=== PATIENT | female | born 1950 | race Caucasian/White ===

== ENCOUNTER 2017-03-29 22:09 | Inpatient (IN) | payer MEDICARE, MEDICAID ==
[~2017-03-29] VITALS: Ht 167.6 cm; Wt 89.8 kg
[2017-03-29] MEDS ORDERED: PRAV40TA3 PO (22:47)
[2017-03-29] MEDS ORDERED: OMEP40CA37 PO (22:47)
[2017-03-29] MEDS ORDERED: AMLO5TAB2 PO (22:47)
[2017-03-29] MEDS ORDERED: LOSA100T15 PO (22:47)
[2017-03-29] MEDS ORDERED: ASPI81TA31 PO (22:47)
[2017-03-29] MEDS ORDERED: FLUT1BLS4 IH (22:47)
[2017-03-29] MEDS ORDERED: MELO-107 PO (22:47)
[2017-03-29] MEDS ORDERED: ALBU18HF2 IH (22:47)
[2017-03-29] MEDS ORDERED: DICL100G16 TP (22:47)
[2017-03-29] MEDS ORDERED: HYDROCODONE/APAP 5-325MG TABLET PO ONE (23:15)
[2017-03-29 23:31] LABS: BASOPHILS % (AUTO) 0.4 % (0.0-2.0); EOSINOPHILS # (AUTO) 0.5 K/uL (0.0-0.7); EOSINOPHILS % (AUTO) 6.5 % (0.0-7.0); HEMATOCRIT 35.4 % (37-47); HEMOGLOBIN 12.1 G/DL (12.0-16.0); LYMPHOCYTES # (AUTO) 2.5 K/UL (0.8-4.8); LYMPHOCYTES % (AUTO) 30.7 % (20.5-51.5); MEAN CORPUSCULAR HEMOGLOBIN 28.1 UUG (27.0-31.0); MEAN CORPUSCULAR HGB CONC 34 g/dL (32.0-37.0); MEAN CORPUSCULAR VOLUME 82.1 FL (81.0-99.0); MONOCYTES # (AUTO) 0.5 K/UL (0.1-1.30); MONOCYTES % (AUTO) 5.7 % (0.0-11.0); NEUTROPHILS # (AUTO) 4.6 K/UL (1.8-8.9); NEUTROPHILS % (AUTO) 56.7 % (38.5-71.5); PLATELET COUNT (AUTO) 283 K/UL (150-450); RED BLOOD CELL COUNT(AUTO) 4.31 MIL/UL (4.2-5.4); WHITE BLOOD COUNT (AUTO) 8.1 K/UL (4.0-11.2)
[2017-03-29 23:34] LABS: *BILIRUBIN,URIN NEGATIVE (NEGATIVE); *BLOOD, URINE 2+ (NEGATIVE); *CLARITY,URINE CLEAR (CLEAR); *COLOR,URINE YELLOW (YELLOW); *KETONES,URINE NEGATIVE (NEGATIVE); *PROTEIN,URINE NEGATIVE (NEGATIVE); *UROBILINOGEN,URINE 0.2 E.U./dl (NORMAL); LEUKOCYTE ESTERASE ,URINE 2+ (NEGATIVE); NITRITE, URINE NEGATIVE (NEGATIVE); PH,URINE 5.5 (5.0-8.0); UGLUCOSE NEGATIVE (NEGATIVE)
--- NOTE | 2017-03-29 23:36 | NUR ---
labs drawn/cxr done/norco admin, monitor showsnsr/po2=97% on roomair. pt refused saline lockat this time.pt positioned for comfort. pt's daughter at the bedside.
[2017-03-29 23:40] LABS: BACTERIA,URINE MANY /HPF (NONE SEEN); SQUAMOUS EPITHELIAL CELL,UR MODERATE /HPF (NONE SEEN); WBC,URINE 80-100 /HPF (0-3)
[2017-03-29 23:41] LABS: CREATININE 0.8 mg/dL (0.6-1.3); POTASSIUM 3.5 mmol/L (3.5-5.1)
[2017-03-29] MEDS ORDERED: HYDROCODONE/APAP 5-325MG TABLET ONE (23:41)
[2017-03-29 23:47] LABS: BILIRUBIN,TOTAL 0.3 mg/dL (0.2-1.0); TOTAL PROTEIN, SERUM 6.9 g/dL (6.4-8.2)
[2017-03-29] MEDS ORDERED: NITROGLYCERIN 0.4 MG/TAB BOTTLE SL ONE (23:58)
[2017-03-30] VITALS: BP 122/65
[2017-03-30] MEDS ORDERED: CEFTRIAXONE 1 G in IV DEXTROSE 5% 50 ML IV ONE ×2
--- NOTE | 2017-03-30 00:13 | NUR ---
Call placed to [facility]) speaking with ANNETTE.
[2017-03-30] MEDS ORDERED: MORPHINE SULFATE 2 MG/1 ML DISP.SYRIN IV ONE (00:15)
--- NOTE | 2017-03-30 00:16 | NUR ---
CP 1/10 SL NTG ADMINISTERED AFTER 5 MIN CP IS SAME AT 1/10 TONYA NOTIFIED.
[2017-03-30] MEDS ORDERED: NITROGLYCERIN 0.4 MG/TAB BOTTLE SL ONE (00:21)
[2017-03-30] MEDS ORDERED: CEFTRIAXONE 1 G VIAL ONE (00:21)
--- NOTE | 2017-03-30 00:57 | NUR ---
REPORT TO FLOOR GIVEN, ADMIT ORDER/BELONGINGS LIST DONE. PTREFUSED MORPHINE IV, DR TRIPATHI INFORMED.
[2017-03-30] MEDS ORDERED: NITROGLYCERIN 0.3 MG/TAB BOTTLE SL PRN (01:15)
[2017-03-30] MEDS ORDERED: HYDROCODONE/APAP 5-325MG TABLET PO PRN (01:15)
[2017-03-30] MEDS ORDERED: ENOXAPARIN SODIUM 40 MG/0.4 ML DISP.SYRIN SQ SCH ×2 (01:15→21:00)
[2017-03-30] MEDS ORDERED: ACETAMINOPHEN 325 MG TABLET PO PRN (01:15)
[2017-03-30] MEDS ORDERED: MAGNESIUM HYDROXIDE 30 ML LIQUID UDC PO PRN (01:15)
[2017-03-30] MEDS ORDERED: ONDANSETRON 4 MG/2 ML VIAL IV PRN (01:15)
[2017-03-30] MEDS ORDERED: ZOLPIDEM 5 MG TABLET PO PRN (01:15)
--- NOTE | 2017-03-30 01:15 | NUR ---
PT [facility]. A/OX4. ABLE TO MAKE NEEDS KNOWN. ORIENTED TO ROOM. V/S STABLE. IN NO ACUTE DISTRESS. PT C/O TOLERABLE LEFT SIDED RIB PAIN, BUT DECLINES PAIN MEDICATION. IV INTACT AND PATENT. 59 SINUS BLANCA ON THE TELE MONITOR. ON RA, TOLERATING WELL. SAFETY MEASURES IMPLEMENTED. CALL LIGHT WITHIN REACH.
[2017-03-30] MEDS ORDERED: ENOXAPARIN SODIUM 40 MG/0.4 ML DISP.SYRIN SQ ONE (02:10)
[2017-03-30 04:00] VITALS: BP 119/53
[2017-03-30 06:36] LABS: BASOPHILS % (AUTO) 0.7 % (0.0-2.0); EOSINOPHILS # (AUTO) 0.5 K/uL (0.0-0.7); EOSINOPHILS % (AUTO) 6.8 % (0.0-7.0); HEMATOCRIT 35.6 % (37-47); HEMOGLOBIN 12.2 G/DL (12.0-16.0); LYMPHOCYTES # (AUTO) 2.7 K/UL (0.8-4.8); LYMPHOCYTES % (AUTO) 37.7 % (20.5-51.5); MEAN CORPUSCULAR HEMOGLOBIN 28.6 UUG (27.0-31.0); MEAN CORPUSCULAR HGB CONC 34 g/dL (32.0-37.0); MEAN CORPUSCULAR VOLUME 83.4 FL (81.0-99.0); MONOCYTES # (AUTO) 0.3 K/UL (0.1-1.30); MONOCYTES % (AUTO) 4.6 % (0.0-11.0); NEUTROPHILS # (AUTO) 3.5 K/UL (1.8-8.9); NEUTROPHILS % (AUTO) 50.2 % (38.5-71.5); PLATELET COUNT (AUTO) 263 K/UL (150-450); RED BLOOD CELL COUNT(AUTO) 4.27 MIL/UL (4.2-5.4)
--- NOTE | 2017-03-30 06:40 | NUR ---
END OF SHIFT NOTES. PT SLEPT WELL THROUGHOUT SHIFT. IN STABLE CONDITION. IV INTACT/PATENT. 61 SINUS RHYTHM ON THE TELE MONITOR. NO C/O CHEST PAIN AT THIS TIME. ON RA, TOLERATING WELL. DVT PUMP IN PLACE. ALL NEEDS ATTENDED. SAFETY MAINTAINED. CALL LIGHT WITHIN REACH.
[2017-03-30 06:47] LABS: THYROID STIMULATING HORMONE 0.447 mIU/mL (0.358-3.740)
[2017-03-30 07:03] LABS: CREATININE 0.8 mg/dL (0.6-1.3); MAGNESIUM 1.9 mg/dL (1.8-2.4); PHOSPHOROUS 4.7 mg/dL (2.5-4.9); POTASSIUM 3.4 mmol/L (3.5-5.1)
[2017-03-30] MEDS: ASPIRIN 81 MG TAB.CHEW PO SCH (08:16)
--- NOTE | 2017-03-30 09:48 | NUR ---
Lovenox taken out of pyxsis by shift superintendent caustic cresylate.
[2017-03-30] MEDS ORDERED: POTASSIUM CHLORIDE 20 MEQ POWDER PACKET PO ONE (11:00)
[2017-03-30 11:37] VITALS: BP 133/65
[2017-03-30] MEDS: PANTOPRAZOLE SODIUM 40 MG TABLET.DR PO SCH (13:00)
[2017-03-30 16:00] VITALS: BP 129/75
--- NOTE | 2017-03-30 19:35 | NUR ---
PT RECEIVED IN BED, AWAKE. A.OX4. ABLE TO MAKE NEEDS KNOWN. V/S STABLE. IN NO ACUTE DISTRESS. PT C/O LEFT RIB PAIN OF 6/10, BUT DECLINES OFFER FOR PAIN MEDICATION. IV INTACT AND PATENT. SAFETY MEASURES IMPLEMENTED. CALL LIGHT WITHIN REACH.
[2017-03-30 20:00] VITALS: BP 119/73
[2017-03-30] MEDS ORDERED: ATORVASTATIN 10 MG TABLET PO SCH (21:00)
[2017-03-30] MEDS ORDERED: CEFTRIAXONE 1 G in IV DEXTROSE 5% 50 ML IV SCH ×2 (21:00)
--- NOTE | 2017-03-31 06:10 | NUR ---
END OF SHIFT NOTES. PT SLEPT WELL THROUGHOUT SHIFT. IN STABLE CONDITION. IV INTACT AND PATENT. IV ABX INFUSED. ALL NEEDS ATTENDED. SAFETY MAINTAINED. CALL LIGHT WITHIN REACH.
[2017-03-31] MEDS: PANTOPRAZOLE SODIUM 40 MG TABLET.DR PO SCH (06:28)
[2017-03-31 06:39] VITALS: BP 123/63
[2017-03-31] MEDS: ASPIRIN 81 MG TAB.CHEW PO SCH (08:34)
[2017-03-31 11:20] VITALS: BP 117/52
[2017-03-31] MEDS ORDERED: SULF1TAB48 PO (11:51)
--- NOTE | 2017-03-31 12:24 | NUR ---
discharge noted. DISCHARGE PROTOCOL FOLLOWED, IV REMOVED WITH NO REDNESS OR IRRITATION NOTED, PRESCRIPTIONS SENT TO PHARMACY, PT VERBALIZED UNDERSTANDING. ALL BELONGINGS ACCOUNTED FOR AND SENT WITH PT, PT LEFT AMBULATORY WITH FAMILY MEMBER. DID NOT WANT WHEELCHAIR.
== END 2017-03-31 12:30 | disposition home or self-care (01) | DRG 206 ==
LOC: ER 22:13 → TELE 03-30 00:41 → MED 03-30 11:30
PROVIDERS: ADMIT Nurse Practitioner Acute Care; ATTEND Internal Medicine
DX: M94.0 Chondrocostal junction syndrome [Tietze] (principal); E66.9 Obesity, unspecified; N39.0 Urinary tract infection, site not specified; E78.5 Hyperlipidemia, unspecified; G89.29 Other chronic pain; I10 Essential (primary) hypertension; F32.9 Major depressive disorder, single episode, unspecified; E87.6 Hypokalemia; Z68.32 Body mass index [BMI] 32.0-32.9, adult
CPT/HCPCS: 36415; 70030-TC; 71010; 83735; 84100; 84443; 85025; 85610; 93005; 93307; A4663; J0696; J1650; J7040; J7060

== ENCOUNTER 2019-02-01 19:14 | Emergency (ER) | payer MEDICARE, OTHER ==
[~2019-02-01] VITALS: Ht 167.6 cm; Wt 90.7 kg
[~2019-02-01 19:14] MED LIST: ALBU18HF2 IH; AMLO5TAB9 PO; ASPI81TA31 PO; DICL100G16 TP; FLUT1BLS4 IH; LOSA100T31 PO; MELO-107 PO; OMEP40CA37 PO; PRAV40TA3 PO; SULF1TAB48 PO
--- NOTE | 2019-02-01 19:37 | NUR ---
PT RECEIVED FR HOME C/O ERYTHEMA AND PRURITUS ON CHEST FOR 3-4DAYS. PT DENIES ALLERGIES AT THIS TIME. RECENT TRAVEL: 01/10/19 -[place] DENIES FEVERS/CHILLS/HEADACHE/SOB, DENIES NVD ABLE TO SPEAK CLEAR AND COMPLETE SENTENCES [id number] BED AT LOWEST POSITION CHANGED INTO PT MD KRISTEN AT BEDSIDE FOR HX AND PHYSICAL
[2019-02-01] MEDS ORDERED: diphenhydrAMINE 25 MG CAP PO ONE (19:58)
--- NOTE | 2019-02-01 20:13 | NUR ---
Patient discharged to home in stable conditon. Written and verbal after care instructions given. Patient verbalizes understanding of instructions. AMBULATORY WITH STABLE GAIT ALL BELONGINGS WITH PATIENT
[2019-02-01 20:15] VITALS: BP 137/82
== END 2019-02-01 20:15 | disposition home or self-care (01) ==
LOC: ER 19:22
DX: L30.9 Dermatitis, unspecified (principal); J45.909 Unspecified asthma, uncomplicated; K21.9 Gastro-esophageal reflux disease without esophagitis; Z79.82 Long term (current) use of aspirin; Z79.51 Long term (current) use of inhaled steroids; Z79.899 Other long term (current) drug therapy
CPT/HCPCS: A4663; Q0163